=== PATIENT | female | born 1985 | race African-American/Black ===

== ENCOUNTER → 2016-04-27 | Outpatient (CLI) | payer OTHER ==
[~2016-04-27] MED LIST: AMBIEN 10MG10 MG PO; AMBIEN 5MG TABLE5 MG PO; AMITRIPTYLINE H25 M1 PO; AMOXICILLIN875 MG PO; ANTIVERT 25MG25 MG PO; CALAN120 MG PO; CLARITIN 1010 MG/TAB PO; CYMBALTA 30MG30 MG PO; FLONASE NASAL S16 GM NS; GLUCOPHAGE500 MG/TAB PO; IBU800 M1 PO; IMITREX 25MG TA25 MG PO; IMPLANON68 MG ID; LAMICTAL 100MG100 MG PO; LAMICTAL 25MG T25 MG PO; MIDRIN 325 MG-11 CAP PO; NEXIUM 40MG40 MG PO; NUVARING VAG RING VG; PENNSAID 150 M150 ML TP; ROBAXIN 50500 MG/TAB PO; SINGULAIR 110 MG/TAB PO; SINUS RINSE NAS; WELLBUTRIN SR100 M1 PO
== END ==
LOC: BHSO 11:11
DX: F31.81 Bipolar II disorder (principal)

== ENCOUNTER → 2016-05-25 | Outpatient (CLI) | payer OTHER | LOC: BHSO 16:00 | DX: F31.81 Bipolar II disorder (principal) ==

== ENCOUNTER → 2016-06-03 | Outpatient (CLI) | payer OTHER | LOC: BHSO 16:07 | DX: F31.81 Bipolar II disorder (principal) ==

== ENCOUNTER → 2016-06-10 | Outpatient (CLI) | payer OTHER | LOC: BHSO 15:40 | DX: F41.1 Generalized anxiety disorder (principal) ==

== ENCOUNTER → 2016-06-24 | Outpatient (CLI) | payer OTHER | LOC: BHSO 15:07 | DX: F31.81 Bipolar II disorder (principal) ==

== ENCOUNTER → 2016-07-10 | Outpatient (CLI) | payer OTHER | LOC: BHSO 15:09 | DX: F31.81 Bipolar II disorder (principal) ==

== ENCOUNTER → 2016-09-04 | Outpatient (CLI) | payer OTHER | LOC: BHSO 12:57 | DX: F31.81 Bipolar II disorder (principal) ==

== ENCOUNTER → 2016-10-15 | Outpatient (CLI) | payer OTHER | LOC: BHSO 16:03 | DX: F31.81 Bipolar II disorder (principal) ==

== ENCOUNTER → 2016-11-18 | Outpatient (CLI) | payer OTHER | LOC: BHSO 16:09 | DX: F31.31 Bipolar disorder, current episode depressed, mild (principal) ==

== ENCOUNTER → 2016-12-24 | Outpatient (CLI) | payer OTHER | LOC: BHSO 16:06 | DX: F31.81 Bipolar II disorder (principal) ==

== ENCOUNTER → 2017-02-03 | Outpatient (CLI) | payer OTHER | LOC: BHSO 16:11 | DX: F31.81 Bipolar II disorder (principal) ==

== ENCOUNTER → 2017-03-03 | Outpatient (CLI) | payer OTHER | LOC: BHSO 16:12 | DX: F31.81 Bipolar II disorder (principal) ==

== ENCOUNTER → 2017-03-17 | Outpatient (CLI) | payer OTHER | LOC: BHSO 16:04 | DX: F31.81 Bipolar II disorder (principal) ==

== ENCOUNTER → 2017-04-07 | Outpatient (CLI) | payer OTHER | LOC: BHSO 16:06 | DX: F31.81 Bipolar II disorder (principal) ==

== ENCOUNTER → 2017-04-22 | Outpatient (CLI) | payer OTHER | LOC: BHSO 16:21 | DX: F06.32 Mood disorder due to known physiological condition with major depressive-like episode (principal) | CPT/HCPCS: G0463 ==

== ENCOUNTER → 2017-07-23 | Outpatient (CLI) | payer OTHER | LOC: BHSO 16:00 | DX: F31.81 Bipolar II disorder (principal) ==

== ENCOUNTER → 2017-08-18 | Outpatient (CLI) | payer OTHER | LOC: BHSO 16:02 | DX: F31.81 Bipolar II disorder (principal) ==

== ENCOUNTER → 2018-03-28 | Outpatient (CLI) | payer OTHER | LOC: BHSO 15:00 | DX: F31.81 Bipolar II disorder (principal) ==

== ENCOUNTER → 2018-04-25 | Outpatient (CLI) | payer OTHER | LOC: BHSO 08:43 | DX: F41.1 Generalized anxiety disorder (principal) | CPT/HCPCS: G0463 ==

== ENCOUNTER → 2018-04-29 | Outpatient (CLI) | payer OTHER | LOC: BHSO 16:06 | DX: F31.81 Bipolar II disorder (principal) ==

== ENCOUNTER → 2018-05-13 | Outpatient (CLI) | payer OTHER | LOC: BHSO 16:05 | DX: F31.81 Bipolar II disorder (principal) ==

== ENCOUNTER → 2018-06-21 | Outpatient (CLI) | payer OTHER | LOC: BHSO 15:29 | DX: F41.1 Generalized anxiety disorder (principal) ==

== ENCOUNTER → 2018-07-01 | Outpatient (CLI) | payer OTHER | LOC: BHSO 16:07 | DX: F31.81 Bipolar II disorder (principal) ==

== ENCOUNTER → 2018-08-17 | Outpatient (CLI) | payer OTHER | LOC: BHSO 16:05 | DX: F31.81 Bipolar II disorder (principal) ==

== ENCOUNTER → 2018-09-14 | Outpatient (CLI) | payer OTHER | LOC: BHSO 16:02 | DX: F31.81 Bipolar II disorder (principal) ==

== ENCOUNTER → 2018-10-06 | Outpatient (CLI) | payer OTHER | LOC: BHSO 16:06 | DX: F31.81 Bipolar II disorder (principal) ==

== ENCOUNTER → 2018-11-24 | Outpatient (CLI) | payer OTHER | LOC: BHSO 15:11 | DX: F41.1 Generalized anxiety disorder (principal) ==

== ENCOUNTER → 2019-03-14 | Outpatient (CLI) | payer OTHER | LOC: BHSO 16:22 | DX: F41.1 Generalized anxiety disorder (principal) | CPT/HCPCS: G0463 ==

== ENCOUNTER → 2019-04-04 | Outpatient (CLI) | payer OTHER | LOC: BHSO 16:07 | DX: F31.81 Bipolar II disorder (principal) ==

== ENCOUNTER → 2019-04-12 | Outpatient (CLI) | payer OTHER | LOC: BHSO 16:05 | DX: F31.81 Bipolar II disorder (principal) ==

== ENCOUNTER → 2019-05-02 | Outpatient (CLI) | payer OTHER | LOC: BHSO 16:11 | DX: F31.81 Bipolar II disorder (principal) ==

== ENCOUNTER → 2019-05-12 | Outpatient (CLI) | payer OTHER | LOC: BHSO 15:59 | DX: F41.1 Generalized anxiety disorder (principal) | CPT/HCPCS: G0463 ==

== ENCOUNTER → 2019-08-30 | Outpatient (CLI) | payer OTHER | LOC: BHSO 15:08 | DX: F31.81 Bipolar II disorder (principal) ==

== ENCOUNTER → 2019-09-20 | Outpatient (CLI) | payer OTHER | LOC: BHSO 14:59 | DX: F31.81 Bipolar II disorder (principal) ==

== ENCOUNTER → 2019-10-03 | Outpatient (CLI) | payer OTHER | LOC: BHSO 15:26 | DX: F31.81 Bipolar II disorder (principal) ==

== ENCOUNTER → 2019-10-18 | Outpatient (CLI) | payer OTHER | LOC: BHSO 09:01 | DX: F31.81 Bipolar II disorder (principal) ==

== ENCOUNTER → 2019-11-02 | Outpatient (CLI) | payer OTHER | LOC: BHSO 08:57 | DX: F31.81 Bipolar II disorder (principal) ==

== ENCOUNTER → 2019-11-15 | Outpatient (CLI) | payer OTHER | LOC: BHSO 15:01 | DX: F31.81 Bipolar II disorder (principal) ==

== ENCOUNTER → 2019-11-28 | Outpatient (CLI) | payer OTHER | LOC: BHSO 15:10 | DX: F31.81 Bipolar II disorder (principal) ==

== ENCOUNTER → 2019-12-12 | Outpatient (CLI) | payer OTHER | LOC: BHSO 16:06 | DX: F31.81 Bipolar II disorder (principal) ==

== ENCOUNTER → 2020-01-09 | Outpatient (CLI) | payer OTHER | LOC: BHSO 16:07 | DX: F31.81 Bipolar II disorder (principal) ==